=== PATIENT | female | born 1985 | race Caucasian/White ===

== ENCOUNTER 2022-03-23 19:22 | Emergency (ER) | payer OTHER, BC, SELFPAY ==
[2022-03-23] VITALS (8 sets, daily range): BP systolic 107–126; BP diastolic 62–82; PULSE 60–71; RESP 16; TEMP 36.8; O2SAT 100
--- NOTE | ~2022-03-23 | US_ITS ---
EXAMINATION: US OB <=14 wk fetus w TV DATE: 03/23/2022 22:40 INDICATION: Left lower quadrant abdominal pain. . TECHNIQUE: Real-time transabdominal and transvaginal pelvic ultrasound was performed. COMPARISON: None. FINDINGS: TRANSABDOMINAL ULTRASOUND: The uterus measures 8.6 x 6.2 x 5.3. TRANSVAGINAL ULTRASOUND: The endometrial complex measures 15 mm in thickness. There are multiple cyst s in the endometrial complex measuring up to 2 mm in diameter. No yolk sac or pole is identifie d. The right ovary measures 2.7 x 1.6 x 1.4 cm. The left ovary is not visualized. There is no free fl uid in the pelvis. IMPRESSION: 1. Multiple cysts in the endometrial complex measuring up to 2 mm in diameter, one or more of which could be a gestational sac. Ectopic and spontaneous are not excluded. Serial beta- hCGs are recommended. Reviewed, dictated and finalized at location A. IMPRESSION: 1. Multiple cysts in the endometrial complex measuring up to 2 mm in diameter, one or more of which could be a gestational sac. Ectopic and spontan eous are not excluded. Serial beta-hCGs are recommended.
--- NOTE | ~2022-03-23 | CT_ITS ---
EXAMINATION: CT abdomen pelvis w con INDICATION: Left lower quadrant pain TECHNIQUE: Computed tomographic images of the abdomen and pelvis were obtained after the administrati on of 100 cc of Omnipaque 350 intravenous contrast. The dose-length product (DLP) was 574.97 mGy-cm. Automated exposure control and iterative reconstruction technique were employed. COMPARISON: None available FINDINGS: The lung bases are clear. The heart size is normal. There is a 10 mm cyst left hepatic lobe . The spleen, pancreas, and adrenal glands are normal. The gallbladder is decompressed. The kidneys a re unremarkable. No pathologically enlarged abdominal or pelvic lymph nodes are identified. There is no free intraperitoneal gas or evidence of bowel obstruction. There is hyperattenuating material in t he mid appendix which measures up to 10 mm. The tip of the appendix is not dilated and there are no p eriappendiceal inflammatory change there is a tiny umbilical hernia containing fat.. IMPRESSION: 1. No CT correlate for the patient's symptoms. 2. Hyperattenuating material in the mildly dilated appendix without dislocation seen obstruction or p eriappendiceal inflammatory change. Reviewed, dictated and finalized at location A. IMPRESSION: 1. No CT correlate for the patient's symptoms. 2. Hyperattenuating material in the mildly dilated appendix without dislocation seen obstruction or periappendiceal inflammatory change.
--- NOTE | 2022-03-23 20:08 | ED.ABDPAIN ---
HPI - Abdominal Pain General Chief Complaint: Abdominal Pain <Stephanie Ramirez MD - Last Filed: 03/26/22 03:19> Stated Complaint: possible ectopic <Stephanie Ramirez MD - Last Filed: 03/26/22 03:19> Time Seen by Provider: 03/23/22 19:33 <Stephanie Ramirez MD - Last Filed: 03/26/22 03:19> History of Present Illness HPI narrative: Patient is a 36-year-old female presenting with abdominal pain. Patient states that she developed left-sided abdominal pain earlier today. States that she has a history of ectopic pregnancies and had one of her tubes removed about 10 years ago. She is unsure which tube. States this pain feels similarly to her prior. States that she then took a test at home which came back positive. States that since arriving to the ER, she has had some vaginal bleeding. Continues to have left-sided abdominal pain. Also endorses some nausea but no vomiting. She denies fevers, chest pain, shortness of breath, cough, diarrhea, dysuria. Last menstrual period was February 05. <Stephanie Ramirez MD - Last Filed: 03/26/22 03:19> Related Data Allergies/Adverse Reactions: Allergies Allergy/AdvReac Type Severity Reaction Status Date / Time No Known Allergies Allergy Verified 03/23/22 19:26 <Stephanie Ramirez MD - Last Filed: 03/26/22 03:19> Review of Systems Review of Systems: All systems reviewed & are unremarkable except as noted in HPI and below <Stephanie Ramirez MD - Last Filed: 03/26/22 03:19> Exam Narrative: GENERAL: Well-appearing, well-nourished, and in no acute distress. HEAD: Normocephalic, atraumatic. EYES: PERRLA and EOMI. ENT: Nares clear, no rhinorrhea or epistaxis. Mucous membranes moist. NECK: Supple. CHEST: Clear to auscultation. No respiratory distress. HEART: Regular rate and rhythm. No murmur heard. Normal peripheral pulses. ABDOMEN: Soft, left-sided abdominal tenderness, no guarding or rebound,, nondistended, normal active bowel sounds. EXTREMITIES: Normal range of motion. No edema. SKIN: Warm, dry, no rash. NEURO: No focal deficits. Alert and oriented x3. PSYCH: Normal mood and affect. <Stephanie Ramirez MD - Last Filed: 03/26/22 03:19> Course Course Emergency Course: Patient is a 36-year-old female presenting with left-sided abdominal pain. Vitals are within normal limits. Exam remarkable for the above. <Stephanie Ramirez MD - Last Filed: 03/26/22 03:19> Patient is a 36-year-old female presenting with left-sided abdominal pain. Vitals are within normal limits. Exam remarkable for the above. 01:30 03/24/22 Patient was signed out to me by Dr. Ramirez pending a CT abdomen pelvis. CT abdomen pelvis returned did not have any findings that account for the patient's current symptoms. Patient was re-evaluated has stable vital signs and is well appearing. She is comfortable following up with her OBGYN for further management of her early . She was given return precautions for vaginal bleeding. <Juan Galvez MD - Last Filed: 03/24/22 01:41> Vital Signs Vital signs: Vital Signs Temperature 98.3 F 03/23/22 19:27 Pulse Rate 71 03/23/22 19:27 Respiratory Rate 16 03/23/22 19:27 Blood Pressure 126/82 03/23/22 19:27 Pulse Oximetry 100 03/23/22 19:27 Oxygen Delivery Room Air 03/23/22 19:27 Temperature 98.3 F 03/23/22 19:27 Pulse Rate 60 03/23/22 23:45 Respiratory Rate 16 03/23/22 23:45 Blood Pressure 117/78 03/24/22 01:16 Pulse Oximetry 98 03/24/22 00:18 Oxygen Delivery Room Air 03/23/22 19:27 <Stephanie Ramirez MD - Last Filed: 03/26/22 03:19> Vital Signs Temperature 98.3 F 03/23/22 19:27 Pulse Rate 71 03/23/22 19:27 Respiratory Rate 16 03/23/22 19:27 Blood Pressure 126/82 03/23/22 19:27 Pulse Oximetry 100 03/23/22 19:27 Oxygen Delivery Room Air 03/23/22 19:27 Temperature 98.3 F 03/23/22 19:27 Pulse Rate 60 03/23/22
[2022-03-23] MEDS: SODIUM CHLORIDE 0.9% IV 1,000 ML 999 ML IV CONT (20:49)
[2022-03-23] MEDS: ONDANSETRON INJ 4 MG/2 ML VIAL IV PUSH (20:49)
[2022-03-23 21:00] LABS: Add Urine Microscopic? YES; Appearance Urine Clear (Clear); Bacteria Urine Trace /hpf; Bilirubin Urine Negative (Negative); Blood Urine 3+ (Negative); Color Urine Straw (Yellow); Glucose Urine UA Negative (Negative); Ketones Urine Negative (Negative); Leukocyte Esterase Ur Negative LEU/UL (Negative); Mucus Urine Rare /lpf; Nitrate Urine Negative (Negative); Protein Urine Negative (Negative); RBC Urine 0-2 /hpf (0-2); Specific Grav Ur 1.005 (1.001-1.035); Squamous Epithelial Cell Urine Occasional /hpf (Few); Urobilinogen Urine Negative mg/dL (<2.0); WBC Urine 0-3 /hpf
[2022-03-23 21:01] LABS: Basophils Percent Auto 0.5 % (0.2-1.2); Eosinophils Absolute Auto 0.2 K/mm3 (0-0.3); Eosinophils Percent Auto 2.7 % (0-4.4); Hematocrit 36.1 % (37.0-47.0); Hemoglobin 12.6 g/dL (12.0-15.0); Immature Granulocyte Absolute 0.01 K/mm3 (0.00-0.031); Immature Granulocyte Percent A 0.2 % (0-0.5); Lymphocytes Absolute Auto 2.53 K/mm3 (0.9-3.2); Lymphocytes Percent Auto 40.5 % (18.3-44.2); Mean Corpuscular HGB Conc 34.9 g/dl (32-36); Mean Corpuscular Hemoglobin 31.9 pg (26-34); Mean Corpuscular Volume 91.4 fl (80-100); Mean Platelet Volume 10.6 fl (7.4-10.4); Monocytes Absolute Auto 0.5 K/mm3 (0.1-0.6); Monocytes Percent Auto 8.7 % (2.6-8.5); Neutrophils Percent Auto 47.4 % (45.5-73.1); Platelet Count Result 207 k/mm3 (150-375); Red Blood Count 3.95 M/mm3 (4.2-5.4); Red Cell Distribution Width 12.4 % (11.5-14.5); White Blood Count 6.2 K/mm3 (4.5-10.0)
[2022-03-23 21:11] LABS: Alanine Aminotransferase 19 U/L (6-35); Albumin Level 4.6 g/dL (3.5-5.1); Alkaline Phosphatase 64 U/L (38-126); Anion Gap 14 mmol/L (8-16); Aspartate Amino Transferase 25 U/L (14-36); Bilirubin,Total 0.4 mg/dL (0.2-1.3); Blood Urea Nitrogen 9 mg/dL (7-17); Calcium 9.3 mg/dL (8.4-10.2); Carbon Dioxide 23 mmol/L (22-30); Chloride 101 mmol/L (98-107); Estimated CRCL calculation 109 ml/min; Estimated Glomerular Filt Rate > 60; Glucose 99 mg/dL (65-110); Potassium 3.6 mmol/L (3.4-5.0); Sodium 138 mmol/L (137-145)
[2022-03-23 21:28] LABS: Beta HCG Quantitative 209.04 mIU/ML
[2022-03-23] MEDS: KETOROLAC 15 MG/ML VIAL (*BKC) IV PUSH (23:42)
[2022-03-23] MEDS: MORPHINE SULFATE (*CRX) 4 MG/ML INJ IV PUSH (23:44)
[2022-03-24] VITALS: O2SAT 100
[2022-03-24 00:18] VITALS: O2SAT 98
[2022-03-24 01:16] VITALS: BP 117/78
== END 2022-03-24 02:00 | disposition home or self-care (01) ==
PROVIDERS: Emergency Medicine; Emergency Provider Emergency Medicine
DX: O20.0 Threatened abortion (principal); Z3A.00 Weeks of gestation of pregnancy not specified
CPT/HCPCS: 36415; 74177; 76801; 76817; 80053; 81001; 81025; 84702; 85025; 96361; 96374; 96375; 99284; J1885; J2270; J2405; J7030; Q9967